=== PATIENT | male | born 1995 | race Caucasian/White ===

== ENCOUNTER 2017-01-17 20:09 | Emergency (ER) | payer SELFPAY ==
[~2017-01-17] VITALS: Ht 170.2 cm; Wt 72.7 kg
[2017-01-17 20:19] VITALS: BP 114/69; TEMP 98.9
[2017-01-17 22:46] VITALS: PULSE 86
== END 2017-01-17 22:48 | disposition home or self-care (01) ==
LOC: COL.ER 20:09
DX: J02.9 Acute pharyngitis, unspecified (principal); R59.0 Localized enlarged lymph nodes